=== PATIENT | male | born 1950 | race Caucasian/White ===

== ENCOUNTER 2018-08-20 00:33 | Emergency (ER) | payer BC ==
[2018-08-20] MEDS ORDERED: HYDROcodone/Acetaminophen 10/325 mg Tablet ONE (01:20)
[2018-08-20] MEDS ORDERED: Amoxicillin/Potassium Clav 875 MG TAB ONE (01:21)
== END 2018-08-20 01:35 | disposition home or self-care (01) ==
LOC: MADERS 00:33
DX: K02.9 Dental caries, unspecified (principal)
CPT/HCPCS: 99282

== ENCOUNTER 2020-09-30 21:16 | Emergency (ER) | payer BC, SELFPAY ==
[2020-09-30] MEDS ORDERED: Cephalexin 500 MG CAP ONE (21:33)
[2020-09-30] MEDS ORDERED: hydrOXYzine 25 MG TAB ONE (21:33)
[2020-09-30] MEDS ORDERED: Famotidine 20 MG TAB ONE (21:33)
[2020-09-30] MEDS ORDERED: Dexamethasone 4 MG TAB ONE (21:33)
== END 2020-09-30 21:44 | disposition home or self-care (01) ==
LOC: MADERS 21:16
DX: L73.9 Follicular disorder, unspecified (principal)
CPT/HCPCS: 99282; J8540

== ENCOUNTER 2022-01-22 21:30 | Emergency (ER) | payer MEDICARE, SELFPAY ==
[2022-01-22] MEDS ORDERED: Lidocaine 1% (PF) 30 ML VIAL ONE (22:45)
[2022-01-22] MEDS ORDERED: Boostrix 0.5 ML (Tdap) VIAL ONE (22:49)
[2022-01-22] MEDS ORDERED: Cephalexin 500 MG CAP ONE (23:10)
== END 2022-01-22 23:18 | disposition home or self-care (01) ==
LOC: MADERS 21:30
DX: L02.424 Furuncle of left upper limb (principal)
CPT/HCPCS: 90471; 90715; 99283; J2001

== ENCOUNTER 2023-05-27 14:17 | Emergency (ER) | payer BC, MEDICARE ==
[2023-05-27] MEDS ORDERED: Amoxicillin/Potassium Clav 875 MG TAB ONE (15:17)
[2023-05-27] MEDS ORDERED: Azithromycin 250 MG TAB ONE (15:17)
[2023-05-27] MEDS ORDERED: Ondansetron ODT 4 MG TAB ONE (15:17)
[2023-05-27] MEDS ORDERED: Acetaminophen 500 MG TAB ONE (15:17)
[2023-05-27 15:46] LABS: SARS-CoV-2 NAA Rapid Test DETECTED (NotDetected)
== END 2023-05-27 16:00 | disposition home or self-care (01) ==
LOC: MADERS 14:17
DX: U07.1 COVID-19 (principal); J12.82 Pneumonia due to coronavirus disease 2019
CPT/HCPCS: 71045; 87804 ×2; 99283; U0002; Q0162

== ENCOUNTER 2023-08-17 18:09 | Emergency (ER) | payer MEDICARE | END 2023-08-17 20:00 | disposition home or self-care (01) | LOC: MADERS 18:09 | DX: K40.90 Unilateral inguinal hernia, without obstruction or gangrene, not specified as recurrent (principal); R91.1 Solitary pulmonary nodule | CPT/HCPCS: 74176 ==